=== PATIENT | male | born 1970 | race Caucasian/White ===

== ENCOUNTER 2022-01-25 03:24 | Inpatient (IN) | payer OTHER, SELFPAY ==
[2022-01-25] VITALS (12 sets, daily range): BP systolic 106–151; BP diastolic 60–88; PULSE 90–117; RESP 15–18; TEMP 36.4–37.8; O2SAT 92–98; BMI 38.0; BMI 39.1
--- NOTE | 2022-01-25 03:33 | CTR_ITS ---
PROCEDURE INFORMATION: Exam: CT Abdomen And Pelvis With Contrast Exam date and time: 01/25/2022 3:50 AM Age: 51 years old Clinical indication: Abdominal pain; Localized; Patient HX: Lower abd pain with diarrhea. TECHNIQUE: Imaging protocol: Computed tomography of the abdomen and pelvis with contrast. Radiation optimization: All CT scans at this facility use at least one of these dose optimization techniques: automated exposure control; mA and/or kV adjustment per patient size (includes targeted exams where dose is matched to clinical indication); or iterative reconstruction. Contrast material: OMNI 300; Contrast volume: 95 ml; Contrast route: INTRAVENOUS (IV); COMPARISON: No relevant prior studies available. RADIATION DOSE METRICS: Total DLP (mGy-cm): 2051. FINDINGS: Liver: Normal. No mass. Gallbladder and bile ducts: Normal. No calcified stones. No ductal dilation. Pancreas: Normal. No ductal dilation. Spleen: Normal. No splenomegaly. Adrenal glands: Normal. No mass. Kidneys and ureters: Normal. No hydronephrosis. Stomach and bowel: Moderate diverticulitis in the proximal sigmoid colon with focally contained air suggesting rupture of a diverticulum with no gross pneumoperitoneum or abscess. Appendix: No evidence of appendicitis. Intraperitoneal space: See Stomach and bowel finding. Vasculature: One or more calcified pelvic phleboliths. Lymph nodes: Unremarkable. No enlarged lymph nodes. Urinary bladder: Unremarkable as visualized. Reproductive: Unremarkable as visualized. Bones/joints: Unremarkable. No acute fracture. Soft tissues: Unremarkable. CT/CT abdomen pelvis w con* [id number] IMPRESSION: Moderate diverticulitis in the proximal sigmoid colon with focally contained air suggesting rupture of a diverticulum with no gross pneumoperitoneum or abscess.
--- NOTE | 2022-01-25 03:34 | W.ED.ABDPA2 ---
HPI - Abdominal Pain General: Chief Complaint: Abdominal Pain Stated Complaint: ABD PAIN Time Seen by Provider: 01/25/22 03:30 Source: patient and EMS Mode of arrival: EMS Limitations: no limitations History of Present Illness: 51-year-old male states he has been having right upper quadrant and right lower quadrant abdominal pain. He states the pain started at 10 PM last night's been very sharp in nature rates an 8 out of 10. Had some nausea vomiting denies any worsening improving factors. Denies any history of any abdominal issues in the past or abdominal surgeries recently. Denies fevers denies chest pain denies radiation of his pain. Denies dysuria Associated Symptoms: Reports nausea and vomiting; Denies chills, dysuria and fever(s) Review of Systems Const: Denies: fever(s), chills, body aches or change in appetite Eyes: Denies: blurry vision or eye discomfort ENMT: Denies: throat pain or dental pain Card: Denies: chest pain Resp: Denies: dyspnea GI: Reports: abdominal pain, nausea and vomiting : Denies: dysuria Musc: Denies: neck pain or back pain Skin/Breast: Denies: rash Neuro: Denies: headache(s) Psych: Denies: depression Reinier/Lymph: Denies: easy bruising All/Imm: Denies: urticaria PFSH ED PFSH: Medical History (Updated 01/25/22 @ 05:03 by Hector Quintero MD) No pertinent past medical history Social History (Updated 01/25/22 @ 03:34 by Hector Quintero MD) Smoking and tobacco status: never smoked Substance/Drug Use: never Physical Exam Const: COMMON NORMALS: no acute distress, patient oriented x3 and healthy appearing HENMT: COMMON NORMALS: normocephalic and atraumatic HEAD & SCALP: normocephalic and atraumatic Eye: COMMON NORMALS: Equal, round and reactive pupils present and EOMs intact bilaterally PUPIL: Yes Equal, round and reactive pupils present Neck/C-Spine: COMMON NORMALS: full ROM and supple Chest: COMMONS NORMALS: normal inspection of the chest and normal palpation of entire chest wall Resp: COMMON NORMALS: normal respiratory effort, No retractions, No use of accessory muscles and clear to auscultation bilaterally AUSCULTATION: clear to auscultation bilaterally Cardio: COMMON NORMALS: regular rate, regular rhythm and No murmurs present (Cardio) RATE: regular rate RHYTHM: regular rhythm GI: COMMON NORMALS: Normal to inspection, nondistended, normoactive bowel sounds present, Soft to palpation and no masses PALPATION: Yes Soft to palpation OTHER: ruq and rlq tenderness Extremity: COMMON NORMALS: normal to inspection and full ROM Neuro: COMMON NORMALS: patient oriented x3, moves all extremities and no focal motor deficits Psych: COMMON NORMALS: mental status grossly normal, Normal thought process present and cooperative THOUGHT PROCESS: Normal thought process present Skin: COMMON NORMALS: no rashes or lesions noted and no wounds GENERAL SKIN EXAM: no rashes or lesions noted Course Vital Signs: Vital signs: Vital Signs Temperature 97.5 F L 01/25/22 03:27 Pulse Rate 94 01/25/22 04:30 Respiratory Rate 16 01/25/22 04:30 Blood Pressure 151/82 01/25/22 04:30 Pulse Oximetry 96 01/25/22 04:30 MDM - Abdominal Pain Medical Decision Making HospitalPatient presents here with diverticulitis with elevated white count. Will admit here for IV antibiotics he has been stable while here. Pain is improved here after Dilaudid Lab Data : 01/25/22 03:46 01/25/22 03:46 Labs/Radiology: Radiology Impressions Abdomen/Pelvis CT 01/25/22 03:33 IMPRESSION: Moderate diverticulitis in the proximal sigmoid colon with focally contained air suggesting rupture of a diverticulum with no gross pneumoperitoneum or abscess. Laboratory Results WBC 14.8 10^3/uL (4.0-10.0) H 01/25/22 03:46 RBC 5.35 10^6/uL (4.1-5.3) H 01/25/22 03:46 Hgb 15.4 g/dL (11.7-16.6) 01/25/22 03:46 Hct 47.1 % (42.0-52.0) 01/25/22 03:46 MCV 88.0 fl (80-94) 01/25/22 03:46 MCH 28.8 pg (28.0-34.0) 01/25/22 03:46 MCHC 32.7 g/dL (30.0-36.0) 01/25/22 03:46 RDW 12.7 % (12.1-15.1) 01/25/22 03:46 Plt Count 225 10^3/cmm (130-400) 01/25/22 03:46 MPV 9.9 fL (7.4-10.4) 01/25/22 03:46 Neut % (Auto) 89.5 % 01/25/22 03:46 Lymph % (Auto) 4.3 % 01/25/22 03:46 Rogers % (Auto) 4.9 % 01/25/22 03:46 Eos % (Auto) 0.7 % 01/25/22 03:46 Baso % (Auto) 0.3 % 01/25/22 03:46 Neut # (Auto) 13.28 10^3/uL (1.8-7.7) H 01/25/22 03:46 Lymph # (Auto) 0.6 10^3/uL (0.8-4.8) L 01/25/22 03:46 Rogers # (Auto) 0.7 10^3/uL (0.2-0.9) 01/25/22 03:46 Eos # (Auto) 0.1 10^3/uL (0.0-0.8) 01/25/22 03:46 Baso # (Auto) 0.0 10^3/uL (0.0-0.1) 01/25/22 03:46 Nucleated RBC % (auto) 0 % 01/25/22 03:46 Nucleated RBCs # 0.0 /100WBC 01/25/22 03:46 Sodium 141 mmol/L (136-145) 01/25/22 03:46 Potassium 4.1 mmol/L (3.5-5.1) 01/25/22 03:46 Chloride 105 mmol/L (98-107) 01/25/22 03:46 Carbon Dioxide 25 mmol/L (22-29) 01/25/22 03:46 Anion Gap 15.1 (5-19) 01/25/22 03:46 BUN 19 mg/dL (6-20) 01/25/22 03:46 Creatinine 0.9 mg/dL (0.7-1.2) 01/25/22 03:46 GFR Calculation 89.0 mL/min (90-130) L 01/25/22 03:46 Glucose 219 mg/dL (65-115) H 01/25/22 03:46 Calculated Osmolality 301 mOsm/kg (285-295) H 01/25/22 03:46 Calcium 9.8 mg/dL (8.5-10.5) 01/25/22 03:46 Total Bilirubin 0.3 mg/dL (0.15-1.2) 01/25/22 03:46 AST 25 U/L (0-40) 01/25/22 03:46 ALT 46 U/L (0-41) H 01/25/22 03:46 Alkaline Phosphatase 42 IU/L (40-130) 01/25/22 03:46 Total Protein 7.6 g/dL (6.6-8.7) 01/25/22 03:46 Albumin 4.6 g/dL (3.5-5.2) 01/25/22 03:46 Globulin 3.0 g/dL (1.3-4.6) 01/25/22 03:46 Lipase 44 U/L (13-60) 01/25/22 03:46 Urine Color Yellow (Yellow) 01/25/22 04:40 Urine Appearance Clear (CLEAR) 01/25/22 04:40 Urine pH 5 (5-7) 01/25/22 04:40 Ur Specific Faxon 1.015 (1.005-1.030) 01/25/22 04:40 Urine Protein Neg (Negative) 01/25/22 04:40 Urine Glucose (UA) 2+ (Normal) H 01/25/22 04:40 Urine Ketones Negative (Negative) 01/25/22 04:40 Urine Blood Neg (Negative) 01/25/22 04:40 Urine Nitrate Negative (Negative) 01/25/22 04:40 Urine Bilirubin Neg (Negative) 01/25/22 04:40 Urine Urobilinogen Norm mg/dL (Negative) 01/25/22 04:40 Ur Leukocyte Esterase Negative (Negative) 01/25/22 04:40 Discharge Plan Discharge Patient Disposition: Admitted As Inpatient Clinical Impression: Diverticulitis Coding Level of Care Code 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
[2022-01-25] MEDS: HYDROmorphone 1 mg/mL INJ 1 mL IVP (03:44)
[2022-01-25] MEDS: ondansetron 2 mg/ML SDV 2 mL 4 MG IVP (03:45)
[2022-01-25] MEDS: sodium chloride 0.9% 1,000 ML 999 ML IV (03:45)
[2022-01-25] MEDS: iohexol 300 mg/mL 100 mL Btl IV (03:48)
[2022-01-25 03:54] LABS: Basophils % 0.3 %; Eosinophils # 0.1 10^3/uL (0.0-0.8); Eosinophils % 0.7 %; Hematocrit 47.1 % (42.0-52.0); Hemoglobin 15.4 g/dL (11.7-16.6); Lymphocytes # 0.6 10^3/uL (0.8-4.8); Lymphocytes % 4.3 %; Mean Corpuscular HGB Conc 32.7 g/dL (30.0-36.0); Mean Corpuscular Hemoglobin 28.8 pg (28.0-34.0); Mean Platelet Volume 9.9 fL (7.4-10.4); Monocytes # 0.7 10^3/uL (0.2-0.9); Monocytes % 4.9 %; Neutrophils # 13.28 10^3/uL (1.8-7.7); Neutrophils % 89.5 %; Nucleated Red Blood Cells % 0 %; Platelet Count 225 10^3/cmm (130-400); Red Blood Count 5.35 10^6/uL (4.1-5.3); Red Cell Distribution Width 12.7 % (12.1-15.1); White Blood Count 14.8 10^3/uL (4.0-10.0)
[2022-01-25 04:16] LABS: Alanine Aminotransferase 46 U/L (0-41); Albumin Level 4.6 g/dL (3.5-5.2); Alkaline Phosphatase 42 IU/L (40-130); Aspartate Amino Transferase 25 U/L (0-40); Blood Urea Nitrogen 19 mg/dL (6-20); Calcium 9.8 mg/dL (8.5-10.5); Carbon Dioxide 25 mmol/L (22-29); Chloride 105 mmol/L (98-107); Glucose 219 mg/dL (65-115); Lipase 44 U/L (13-60); Osmolality Calculated 301 mOsm/kg (285-295); Sodium 141 mmol/L (136-145); Total Bilirubin 0.3 mg/dL (0.15-1.2); Total Protein 7.6 g/dL (6.6-8.7)
[2022-01-25 04:17] LABS: Anion Gap 15.1 (5-19); Potassium 4.1 mmol/L (3.5-5.1)
[2022-01-25 04:59] LABS: Add Urine Microscopic? NO; Charge for UA Resulting for Rev
[2022-01-25 05:16] LABS: Bilirubin Urine Neg (Negative); Blood Urine Neg (Negative); Glucose Urine UA 2+ (Normal); Ketones Urine Negative (Negative); Leukocyte Esterase Urine Negative (Negative); Nitrate Urine Negative (Negative); Protein Urine Neg (Negative); Specific Gravity, Urine 1.015 (1.005-1.030); Urine Appearance Clear (CLEAR); Urine Color Yellow (Yellow); Urobilinogen Urine Norm (Negative); pH Urine 5 (5-7)
[2022-01-25] MEDS: metroNIDAZOLE IV 500 MG/100 ML PREMIX 100 MG IV ×3 (05:18→21:07)
[2022-01-25] MEDS: ciprofloxacin 400 MG/200 ML PREMIX 200 MG IV ×2 (05:19→17:30)
--- NOTE | 2022-01-25 06:06 | P.HP_ITS ---
Providers/Chief Complaint Admitting Physician: James Hanna Chief Complaint: ABD PAIN History of Present Illness Pleasant 51-year-old gentleman with history of hernia repair in infancy, but otherwise no significant past medical history presented to ER for evaluation due to abdominal pain, associated with diarrhea, nausea no vomiting, 8 out of 10 severity, across lower abdomen radiating to the left lower quadrant. He was having some chills, no fever. Lives at home with his and children, but nobody else was ill. CT abdomen pelvis in ER reveals moderate diverticulitis and proximal sigmoid colon with focal contained air suggesting rupture of a diverticulum with no gross pneumoperitoneum or abscess. Noted leukocytosis 14.8. Heart rate 90-100. He received 1000 sodium chloride bolus. Pain and nausea medication. Is started on Cipro and Flagyl. Lactic acid, blood cultures are requested. Surgery is consulted. Review of Systems Const: Reports: chills; Denies: fever(s), body aches or malaise Eyes: Denies: change in vision, eye discomfort or eye redness ENMT: Denies: throat pain, oral sores or ear or mastoid pain Card: Denies: chest pain, edema, pre-syncope or dyspnea on exertion Resp: Denies: dyspnea, productive cough, change in phlegm color or hemoptysis GI: Reports: abdominal pain, nausea and diarrhea; Denies: vomiting, constipation, hematochezia or melena : Denies: flank pain, difficulty urinating, urinary frequency or hematuria Musc: Denies: back pain, joint swelling or joint redness Skin/Breast: Denies: rash or new lesions Neuro: Denies: headache(s), numbness in extremities, weakness in extremities, dizziness, confusion or seizure-like activity Endo: Denies: polyuria or polydipsia Reinier/Lymph: Denies: easy bleeding or tender lymph nodes All/Imm: Denies: urticaria or tongue swelling Medications/Allergies Allergies Allergy/AdvReac Type Severity Reaction Status Date / Time No Known Allergies Allergy Verified 01/25/22 03:53 PFSH Acute PFSH: Medical History (Updated 01/25/22 @ 06:13 by James Hanna MD) No pertinent past medical history Surgical History H/O hernia repair Infancy Family History Other No significant family history Social History (Updated 01/25/22 @ 06:09 by James Hanna MD) Smoking and tobacco status: never smoked Substance/Drug Use: never Lives independently: Yes Marital status: Vitals/I&O/Wt Last Vital Signs Temp 97.5 F L 01/25/22 05:31 Pulse 90 01/25/22 05:31 Resp 16 01/25/22 05:31 BP 136/73 01/25/22 05:31 Pulse Ox 94 01/25/22 05:31 Weight last 48 hrs Weight 127.006 kg Physical Exam Const: COMMON NORMALS: alert GENERAL APPEARANCE: cooperative ORIENTATION/CONSCIOUSNESS: Yes awake HENMT: COMMON NORMALS: normocephalic, EAC's normal, Normal external nose present and moist oral mucous membranes HEAD & SCALP: normocephalic NOSE: Normal external nose present EXTERNAL AUDITORY CANAL: EAC's normal Neck/C-Spine: COMMON NORMALS: no meningeal signs Chest: CHEST: Yes Symmetrical chest wall rise Resp: COMMON NORMALS: clear to auscultation bilaterally AUSCULTATION: clear to auscultation bilaterally Cardio: COMMON NORMALS: regular rate, regular rhythm and No murmurs present (Cardio) RATE: regular rate RHYTHM: regular rhythm GI: COMMON NORMALS: Soft to palpation PALPATION: Yes Soft to palpation and Yes Tenderness to palpation present (GI) Details: LLQ Extremity: COMMON NORMALS: no pedal edema Neuro: COMMON NORMALS: moves all extremities SENSORIUM/ORIENTATION: Yes alert MENINGEAL SIGNS: Yes no meningeal signs Psych: COMMON NORMALS: mental status grossly normal Skin: COMMON NORMALS: no wounds RASHES: no rashes Data : 01/25/22 03:46 01/25/22 03:46 A&P Assessment and plan (1) Diverticulitis: Continue Cipro, Flagyl. Bowel rest, sips and ice chips. IV fluids. After recovers would benefit from follow-up colonoscopy. Reports also having multiple episodes of diarrhea, will request stool studies. Status: Acute (2) Perforated diverticulum of large intestine: No pneumoperitoneum. No indication for urgent surgical intervention. Status: Acute (3) Sepsis: Sepsis due to diverticulitis. Collect lactic acid, blood cultures. He is started on Cipro and Flagyl, will continue. Status: Acute Plan History of hernia repair in infancy. Attestations Medical Necessity Statement*: Admission of over 2 midnights is anticipated for assessment of management of sepsis due to diverticulitis with microperforation. Coding Level of Care Code Acute Nurse Assistant for [facility] Fwd Diagnoses Diverticulitis K57.92 Perforated diverticulum of large intestine K57.20 Sepsis A41.9
[2022-01-25] MEDS: heparin 5,000 unit/mL INJ 1 mL 5000 UNIT SUBCUT (06:44)
[2022-01-25] MEDS: lactated ringers 1,000 ML 100 ML IV ×2 (06:44→17:30)
[2022-01-25 08:01] LABS: Lactate (Lactic Acid level) 2.4 mmol/L (0.5-2.2)
--- NOTE | 2022-01-25 08:45 | PM.PN ---
Subjective Subjective: Patient sitting comfortably low-grade fever Leukocytosis Tachycardia Laying comfortably No active complaints No active emesis No endorgan damage Vitals/I&O/Wt Last Vital Signs Temp 100.1 F H 01/25/22 08:15 Pulse 112 H 01/25/22 08:15 Resp 15 01/25/22 08:15 BP 117/63 01/25/22 08:15 Pulse Ox 92 01/25/22 08:15 Weight last 48 hrs Weight 130.907 kg Weight 127.006 kg Physical Exam Narrative: Patient was laying comfortably pain mostly in his hypogastric region Laying comfortably in his bed Saturating well on room air Low-grade fever Euvolemic Abdomen is soft no signs of peritonitis, mild tenderness on deep palpation in hypogastric region EOMI, PERRLA S1, S2 Patient is euvolemic Data : 01/25/22 03:46 01/25/22 03:46 Micro: Microbiology 01/25/22 07:24 Blood Culture - Preliminary Blood SPECIMEN COLLECTED 01/25/22 07:24 Blood Culture - Preliminary Blood SPECIMEN COLLECTED A&P Assessment and plan (1) Perforated diverticulum of large intestine: Status: Acute (2) Diverticulitis: Status: Acute Plan Sepsis due to diverticulitis Patient has low-grade fever, tachycardia, lactic acid 2.4 Blood cultures obtained, continue IV antibiotics Patient is on clear liquids No active signs of peritonitis Monitor closely for now Patient will need outpatient colonoscopy once stable he did not have colonoscopy at age 50 He is denying constipation No family history of GI cancers Advance diet to clear liquid DVT prophylaxis SCDs, avoid heparin in case he would require any aggressive intervention Full code Attestations Medical Necessity Statement*: Continue medical management Time Spent in Patient Care: 20min Coding Level of Care Code Acute Lozenge Dough Mixer for [facility] Fwd Diagnoses Perforated diverticulum of large intestine K57.20 Diverticulitis K57.92
--- NOTE | 2022-01-25 14:57 | PM.CONSULT ---
Providers/Reason For Consult Consulting Physician/Specialty*: General Surgery Dr. Garrett Reason for Consult*: Perforated diverticulitis Requesting Physician: Dr. Quintero Attending Physician: Kvng Schwarz MD History of Present Illness History of Present Illness Eb Dias is a 51 year old male who is pretty healthy but presented to the ER with abdominal pain which is generalized and nausea since yesterday. He denies any vomiting, constipation or diarrhea. No hematemesis hematochezia or melena. The pain was initially generalized but now more localized to the lower abdomen, does not radiate, worse with physical activity. No prior colonoscopy. No family history of significant diverticular disease or colon cancer. He was noted to have a WBC of 14.[address] scan showing perforated sigmoid diverticulitis Review of Systems General: Reports: 10 or more systems reviewed and unremarkable except in HPI and below Medications/Allergies Home Medications Medication Instructions Recorded Confirmed Last Taken Type No Known Home Medications 01/25/22 01/25/22 Unknown History Allergies Allergy/AdvReac Type Severity Reaction Status Date / Time No Known Allergies Allergy Verified 01/25/22 03:53 Current Medications Generic Name Dose Route Start Last Admin Trade Name Freq PRN Reason Stop Dose Admin Heparin Sodium (Porcine) 5,000 unit 01/25/22 06:30 01/25/22 06:44 Heparin 5,000 Unit/Ml Inj 1 Ml SUBCUT 5,000 unit Q8H ARIK Administration Lactated Ringer's 1,000 mls @ 100 mls/hr 01/25/22 06:30 01/25/22 06:44 Lactated Ringers IV 100 mls/hr .Q10H ARIK Administration Metronidazole 500 mg in 100 mls @ 100 mls/hr 01/25/22 13:00 01/25/22 14:13 Flagyl Iv IV 100 mls/hr Q8H ARIK Administration Protocol PFSH Acute PFSH: Medical History No pertinent past medical history Surgical History H/O hernia repair Infancy Family History Other No significant family history Social History Smoking and tobacco status: never smoked Substance/Drug Use: never Lives independently: Yes Marital status: Vitals/I&O/Wt Last Vital Signs Temp 98.2 F 01/25/22 11:29 Pulse 116 H 01/25/22 11:29 Resp 18 01/25/22 11:29 BP 106/60 01/25/22 11:29 Pulse Ox 92 01/25/22 11:29 01/24/22 01/25/22 01/25/22 22:59 06:59 14:59 Intake Total 1300 / 1300 Balance 1300 / 1300 Weight last 48 hrs Weight 288 lb 9.6 oz Weight 280 lb Physical Exam Narrative: HEENT: Normocephalic Eye: Sclera /conjunctiva normal Abdomen: Soft to palpation, tender lower abdomen, no guarding or rigidity Neurological: Oriented to place person and time Skin: Intact, no lesions appreciated on gross exam Data : 01/27/22 05:35 01/27/22 05:35 Micro: Microbiology 01/25/22 07:24 Blood Culture - Preliminary Blood SPECIMEN COLLECTED 01/25/22 07:24 Blood Culture - Preliminary Blood SPECIMEN COLLECTED A&P Assessment and plan (1) Perforated diverticulum of large intestine: 51-year-old male with perforated sigmoid diverticulitis who is currently hemodynamically stable. Patient has low-grade fevers and his WBC is 14 on presentation IV Cipro and Flagyl Heparin for DVT prophylaxis Continue IV fluids Repeat CBC BMP tomorrow Discussed with the patient that while he is hemodynamically stable without evidence of peritonitis, we will treat him conservatively with IV antibiotics at this point. If he were to become hemodynamically unstable, develop peritonitis then we might have to repeat the CT scan and or proceed with surgery. The details of the potential surgery was discussed with the patient. Status: Acute Consult Attestations Medical Necessity Statement: As per attending physician Coding Level of Care Code Acute Supervisor [employer] for jaswinder Christensen Diagnoses Perforated diverticulum of large intestine K57.20
[2022-01-25 17:03] LABS: Lactate (Lactic Acid level) 1.5 mmol/L (0.5-2.2)
[2022-01-25] MEDS: morphine 4 mg/mL SDV 1 mL 2 MG IVP (18:59)
[2022-01-26] VITALS (10 sets, daily range): BP systolic 127–146; BP diastolic 66–79; PULSE 85–98; RESP 17–20; TEMP 36.6–37.6; O2SAT 91–96
[2022-01-26] MEDS: morphine 4 mg/mL SDV 1 mL 2 MG IVP ×3 (00:57→23:42)
[2022-01-26] MEDS: metroNIDAZOLE IV 500 MG/100 ML PREMIX 100 MG IV ×3 (05:04→20:32)
[2022-01-26] MEDS: lactated ringers 1,000 ML 100 ML IV ×2 (05:04→15:04)
[2022-01-26 05:34] LABS: Basophils % 0.2 %; Hematocrit 40.1 % (42.0-52.0); Hemoglobin 12.8 g/dL (11.7-16.6); Lymphocytes # 1.1 10^3/uL (0.8-4.8); Lymphocytes % 5.8 %; Mean Corpuscular HGB Conc 31.9 g/dL (30.0-36.0); Mean Corpuscular Hemoglobin 29.3 pg (28.0-34.0); Mean Corpuscular Volume 91.8 fl (80-94); Mean Platelet Volume 9.5 fL (7.4-10.4); Monocytes # 1.1 10^3/uL (0.2-0.9); Neutrophils # 16.08 10^3/uL (1.8-7.7); Neutrophils % 87.4 %; Nucleated Red Blood Cells % 0 %; Platelet Count 179 10^3/cmm (130-400); Red Blood Count 4.37 10^6/uL (4.1-5.3); Red Cell Distribution Width 13.2 % (12.1-15.1); White Blood Count 18.4 10^3/uL (4.0-10.0)
[2022-01-26] MEDS: ciprofloxacin 400 MG/200 ML PREMIX 200 MG IV ×2 (06:03→17:22)
[2022-01-26 06:04] LABS: Anion Gap 13.6 (5-19); Blood Urea Nitrogen 15 mg/dL (6-20); Calcium 8.8 mg/dL (8.5-10.5); Carbon Dioxide 22 mmol/L (22-29); Chloride 104 mmol/L (98-107); Glomerular Filtration Rate 101.9 mL/min (90-130); Glucose 133 mg/dL (65-115); Osmolality Calculated 285 mOsm/kg (285-295); Potassium 3.6 mmol/L (3.5-5.1); Sodium 136 mmol/L (136-145)
--- NOTE | 2022-01-26 09:48 | XR_ITS ---
WS: [id number] Exam: XR KUB portable [id number] Date/Time of Exam: 01/26/2022 9:54 AM Reason For Exam: micro perf diverticluilitis Multiple dilated small bowel loops in the central abdomen suggesting small bowel obstruction. No obvi ous pneumoperitoneum. Organ margins are obscured. XR/XR KUB portable [id number] IMPRESSION: 1. Findings suggest small bowel obstruction.
--- NOTE | 2022-01-26 11:05 | PC.CHAP ---
Pastoral Care Encounter/Spiritual Assessment Type of Contact [] Declined right of way cutter visit [] Patient/Family/Request visit [] Outpatient visit [] Follow-up visit [] Physician referral [] Code/Alert [x] Routine visit [] Staff referral [] Actively dying [] Patient sleeping [] Family support [] [] Out of room [] Palliative care [] [x] Receiving care in room [] Pre-surgical visit [] Trauma [x] Long length of stay [] ICU visit [] Other: Relational/Emotional Strength [x] Patient feels connected with others/family/visitors/staff [] Distress [] Loneliness/isolation [] Abandonment Spirituality of Patient [x] Person of Janett [] Attends Voodoo of their Janett [x] Believes in Prayer [] Reads Bible or Hoahaoism materials [] There are Spiritual issues to be addressed Tunnel Man Interventions [x] Prayer [x] Active listening [x] Non-anxious presence [x] Spiritual/emotional support [] Crisis/trauma care [x] Spiritual counseling [] Bereavement support [] Provided bereavement packet [] Provided Bible/devotional materials [] Provided toy/stuffed animal, coloring book to patient or family member [] Provided Communion [] Anointing/[place] [] Salvation [x] Completed spiritual assessment [] Other: Impact on Illness or Injury [] Angry [] Fearful [x] Anxious [] Often cries [] Exhaustion [] Unable to work [] Unable to attend sikh [] Unable to walk/stand [] Unable to read [] Unable to drive [] Unable to eat/drink [] Unable to sleep [] Unable to be with family [] Patient intubated [] Other: Summary diver articliss will take time for any kin of recover will be able to go home has agood attitude Time spent with patient
--- NOTE | 2022-01-26 11:11 | PM.PN ---
Subjective Subjective: Jumping white count noted Afebrile Cultures negative Requested KUB which showed ileus versus SBO He has been tolerating his diet Passing flatus, endorsing that his pain is less in intensity as compared to yesterday Currently on clear liquid diet Vitals/I&O/Wt Last Vital Signs Temp 98.6 F 01/26/22 08:00 Pulse 87 01/26/22 08:00 Resp 17 01/26/22 08:00 BP 146/75 01/26/22 08:00 Pulse Ox 92 01/26/22 08:00 01/25/22 01/26/22 01/26/22 22:59 06:59 14:59 Intake Total 1520 / 2820 1100 / 3920 200 / 200 Output Total 340 / 340 180 / 520 Balance 1180 / 2480 920 / 3400 200 / 200 Weight last 48 hrs Weight 130.907 kg Weight 127.006 kg Physical Exam Narrative: Patient is comfortably in his bed at the bedside Saturating well on room air Abdomen is distended, soft, no sign of peritonitis, mild tenderness on deep palpation in left lower quadrant and hypogastric region Bowel sounds sluggish to absent No active signs of peritonitis No rebound tenderness guarding or rigidity No signs of edema Very pleasant and cooperative Saturating well on room air Data : 01/26/22 04:39 01/26/22 04:39 Micro: Microbiology 01/25/22 07:24 Blood Culture - Preliminary Blood NEGATIVE TO DATE 01/25/22 07:24 Blood Culture - Preliminary Blood NEGATIVE TO DATE A&P Assessment and plan (1) Sepsis: Status: Acute (2) Perforated diverticulum of large intestine: Status: Acute (3) Diverticulitis: Status: Acute (4) SBO (small bowel obstruction): Status: Acute Plan Sepsis related to diverticulitis SBO today, leukocytosis worsening We will make him n.p.o., will transfuse with Dr. Garrett if he would recommend an NG tube to suction however patient clinically is better, not experiencing emesis, afebrile, cultures negative to date, no electrolyte imbalance Lactate 1.5 Okay for 1 dose of milk of magnesia He was tolerating clear liquid diet without any difficulties KUB obtained today, no signs of pneumoperitoneum, Abdomen is nontender no active signs of peritonitis Patient is full code Change diet to n.p.o. except medications, will follow up with general surgery Patient is full code N.p.o. for now Attestations Medical Necessity Statement*: Continue medical management Coding Level of Care Code Acute Circular Knife Machine Cutter for [facility] Fwd Diagnoses Sepsis A41.9 Perforated diverticulum of large intestine K57.20 Diverticulitis K57.92 SBO (small bowel obstruction) K56.609
[2022-01-26 12:16] LABS: Procalcitonin 0.57 ng/mL (0-0.5)
[2022-01-26 12:27] LABS: C Reactive Protein 239.2 mg/L (0.0-4.9)
--- NOTE | 2022-01-26 12:42 | P.PN_ITS ---
Subjective Subjective: Patient states that his abdominal pain is better, no nausea or vomiting, tolerating clears, no flatus or BM Medications: Reviewed: Yes Vitals/I&O/Wt Last Vital Signs Temp 99.7 F H 01/26/22 12:00 Pulse 91 01/26/22 12:00 Resp 18 01/26/22 12:00 BP 137/75 01/26/22 12:00 Pulse Ox 91 01/26/22 12:00 01/25/22 01/26/22 01/26/22 22:59 06:59 14:59 Intake Total 1520 / 3920 1100 / 3920 320 / 320 Output Total 340 / 520 180 / 520 Balance 1180 / 3400 920 / 3400 320 / 320 Weight last 48 hrs Weight 288 lb 9.6 oz Weight 280 lb Physical Exam Narrative: Abdomen: Soft, tender, voluntary guarding present, no rigidity Data : 01/26/22 04:39 01/26/22 04:39 Micro: Microbiology 01/25/22 07:24 Blood Culture - Preliminary Blood NEGATIVE TO DATE 01/25/22 07:24 Blood Culture - Preliminary Blood NEGATIVE TO DATE A&P Assessment and plan (1) Perforated diverticulum of large intestine: 51-year-old male with perforated sigmoid diverticulitis who is currently hemodynamically stable. Patient had a T-max of 101 yesterday morning but his white count is up to 18.4 today. No flatus or BM Continue IV Cipro and Flagyl Heparin for DVT prophylaxis Continue IV fluids Repeat CBC BMP tomorrow Start Colace 100 mg p.o. twice daily patient most likely has ileus with functional obstruction from inflammation in the sigmoid colon Discussed with the patient that while he is hemodynamically stable without evidence of peritonitis his WBC is trending up which raises the possibility of him developing a potential abscess. At this point we will continue with observation but if his WBC continues to trend up and if he were to become more febrile then we will need to repeat the CT scan of the abdomen and pelvis Status: Acute Attestations Medical Necessity Statement*: as per primary Coding Level of Care Code Acute Canoe Inspector Final for [facility] Diagnoses Perforated diverticulum of large intestine K57.20
[2022-01-26] MEDS: magnesium hydroxide 30 mL UDC 15 ML PO (15:43)
[2022-01-26] MEDS: docusate sodium 100 mg Capsule PO (17:22)
[2022-01-26] MEDS: acetaminophen 325 mg Tablet 650 MG PO (20:32)
[2022-01-27] VITALS (9 sets, daily range): BP systolic 122–164; BP diastolic 74–93; PULSE 82–95; RESP 16–20; TEMP 36.6–37.4; O2SAT 91–95
[2022-01-27] MEDS: lactated ringers 1,000 ML 100 ML IV (01:10)
[2022-01-27] MEDS: metroNIDAZOLE IV 500 MG/100 ML PREMIX 100 MG IV ×3 (04:18→20:26)
[2022-01-27] MEDS: morphine 4 mg/mL SDV 1 mL 2 MG IVP (04:21)
[2022-01-27] MEDS: ciprofloxacin 400 MG/200 ML PREMIX 200 MG IV ×2 (05:31→17:26)
[2022-01-27 05:58] LABS: Basophils % 0.1 %; Eosinophils % 0.1 %; Hematocrit 41.1 % (42.0-52.0); Hemoglobin 13.6 g/dL (11.7-16.6); Lymphocytes # 0.6 10^3/uL (0.8-4.8); Lymphocytes % 3.6 %; Mean Corpuscular HGB Conc 33.1 g/dL (30.0-36.0); Mean Corpuscular Hemoglobin 29.2 pg (28.0-34.0); Mean Corpuscular Volume 88.2 fl (80-94); Mean Platelet Volume 9.1 fL (7.4-10.4); Monocytes # 0.9 10^3/uL (0.2-0.9); Neutrophils % 90.5 %; Nucleated Red Blood Cells % 0 %; Platelet Count 205 10^3/cmm (130-400); Red Blood Count 4.66 10^6/uL (4.1-5.3); Red Cell Distribution Width 12.9 % (12.1-15.1); White Blood Count 17.6 10^3/uL (4.0-10.0)
[2022-01-27 06:18] LABS: Anion Gap 15.3 (5-19); Blood Urea Nitrogen 13 mg/dL (6-20); Calcium 8.8 mg/dL (8.5-10.5); Carbon Dioxide 25 mmol/L (22-29); Chloride 100 mmol/L (98-107); Glomerular Filtration Rate 101.9 mL/min (90-130); Glucose 156 mg/dL (65-115); Osmolality Calculated 287 mOsm/kg (285-295); Potassium 3.3 mmol/L (3.5-5.1); Sodium 137 mmol/L (136-145)
[2022-01-27 06:25] LABS: Lactate (Lactic Acid level) 1.1 mmol/L (0.5-2.2)
[2022-01-27] MEDS: potassium chloride ER 20 mEq Tablet 40 MEQ PO (07:59)
[2022-01-27] MEDS: docusate sodium 100 mg Capsule PO (08:00)
--- NOTE | 2022-01-27 12:00 | P.PN_ITS ---
Subjective Subjective: Patient is afebrile 1 bowel movement yesterday Tolerating clear liquid diet No worsening abdominal pain Leukocytosis trending down Potassium repleted IV fluids discontinued Hypertension related to IV fluids Vitals/I&O/Wt Last Vital Signs Temp 98.8 F 01/27/22 11:28 Pulse 95 01/27/22 11:28 Resp 18 01/27/22 11:28 BP 164/93 01/27/22 11:28 Pulse Ox 95 01/27/22 11:28 01/26/22 01/27/22 01/27/22 22:59 06:59 14:59 Intake Total 1400 / 1720 1540 / 3260 120 / 120 Output Total 420 / 420 Balance 1400 / 1720 1120 / 2840 120 / 120 Physical Exam Narrative: Patient is laying comfortably in his bed Abdomen is slightly tender on deep palpation however no active signs of guarding rigidity or peritonitis Bowel sound present No signs of edema Nonfocal neuro exam Saturating well on room air S1, S2 Patient is pleasant cooperative during my evaluation Data : 01/27/22 05:35 01/27/22 05:35 Micro: Microbiology 01/27/22 04:25 Enteric Pathogens (PCR) - Final Stool Routine Collection C.difficile Toxin B Gene (PCR) - Final 01/25/22 07:24 Blood Culture - Preliminary Blood NEGATIVE TO DATE 01/25/22 07:24 Blood Culture - Preliminary Blood NEGATIVE TO DATE A&P Assessment and plan (1) SBO (small bowel obstruction): Status: Acute (2) Sepsis: Status: Acute (3) Perforated diverticulum of large intestine: Status: Acute (4) Diverticulitis: Status: Acute Plan Sepsis related to diverticulitis: Improving Monitor for signs of intra-abdominal abscess Leukocytosis trending down Afebrile Cultures negative to date Clinically patient is improving SBO: Improved he is tolerating his diet, 1 bowel movement yesterday This most likely is related to ileus due to active inflammation Advance diet after general surgery evaluation today Continue IV antibiotics Discontinue IV fluids secondary to hypertension, add amlodipine, Opioids Avoid anticoagulating agent at this point in case he would require any intervention, We will discharge him once his leukocytosis shows a downtrend Attestations Medical Necessity Statement*: Patient may be able to go home in next 30 hours Time Spent in Patient Care: 20mins Coding Level of Care 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
[2022-01-27] MEDS: amlodipine 10 mg Tablet PO (12:28)
--- NOTE | 2022-01-27 12:51 | PM.PN ---
Subjective Subjective: Patient has been doing well feels a lot better today, had 3 bowel movements, no nausea vomiting. He has been afebrile for the last 24 hours Medications: Reviewed: Yes Vitals/I&O/Wt Last Vital Signs Temp 98.5 F 01/27/22 12:00 Pulse 91 01/27/22 12:00 Resp 16 01/27/22 12:00 BP 143/83 01/27/22 12:00 Pulse Ox 92 01/27/22 12:00 01/26/22 01/27/22 01/27/22 22:59 06:59 14:59 Intake Total 1400 / 3260 1540 / 3260 120 / 120 Output Total 420 / 420 Balance 1400 / 2840 1120 / 2840 120 / 120 Physical Exam Narrative: Abdomen: Soft, nondistended, minimally tender in the left lower quadrant Data : 01/27/22 05:35 01/27/22 05:35 Micro: Microbiology 01/27/22 04:25 Enteric Pathogens (PCR) - Final Stool Routine Collection C.difficile Toxin B Gene (PCR) - Final A&P Assessment and plan (1) Perforated diverticulum of large intestine: 51-year-old male with perforated sigmoid diverticulitis who is currently hemodynamically stable. Patient has been afebrile and white count is down to 17.6 Continue IV Cipro and Flagyl Heparin for DVT prophylaxis DC IV fluids Repeat CBC BMP tomorrow Colace 100 mg p.o. twice daily to be continued Recheck labs tomorrow, if patient continues to be afebrile and WBC is trending down he could potentially go home on oral antibiotics for 7 days. 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
[2022-01-28 04:00] VITALS: BP 131/74; PULSE 84; RESP 18; TEMP 36.4; O2SAT 95
[2022-01-28] MEDS: metroNIDAZOLE IV 500 MG/100 ML PREMIX 100 MG IV (04:08)
[2022-01-28 05:03] LABS: Basophils % 0.2 %; Eosinophils # 0.3 10^3/uL (0.0-0.8); Eosinophils % 2.1 %; Hematocrit 40.9 % (42.0-52.0); Hemoglobin 13.5 g/dL (11.7-16.6); Lymphocytes # 1.2 10^3/uL (0.8-4.8); Lymphocytes % 8.9 %; Mean Corpuscular Hemoglobin 29.2 pg (28.0-34.0); Mean Corpuscular Volume 88.5 fl (80-94); Mean Platelet Volume 9.4 fL (7.4-10.4); Monocytes # 0.8 10^3/uL (0.2-0.9); Monocytes % 6.4 %; Neutrophils # 10.68 10^3/uL (1.8-7.7); Neutrophils % 81.7 %; Nucleated Red Blood Cells % 0 %; Platelet Count 222 10^3/cmm (130-400); Red Blood Count 4.62 10^6/uL (4.1-5.3); Red Cell Distribution Width 13.1 % (12.1-15.1); White Blood Count 13.1 10^3/uL (4.0-10.0)
[2022-01-28 05:25] LABS: Anion Gap 13.1 (5-19); Blood Urea Nitrogen 12 mg/dL (6-20); Calcium 8.8 mg/dL (8.5-10.5); Carbon Dioxide 24 mmol/L (22-29); Chloride 101 mmol/L (98-107); Glomerular Filtration Rate 101.9 mL/min (90-130); Glucose 103 mg/dL (65-115); Osmolality Calculated 280 mOsm/kg (285-295); Potassium 3.1 mmol/L (3.5-5.1); Sodium 135 mmol/L (136-145)
[2022-01-28] MEDS: ciprofloxacin 400 MG/200 ML PREMIX 200 MG IV (05:34)
[2022-01-28 07:40] VITALS: BP 123/73; PULSE 82; RESP 17; TEMP 36.8; O2SAT 95
[2022-01-28] MEDS: pantoprazole DR 40 mg Tablet PO (08:06)
[2022-01-28] MEDS: amlodipine 10 mg Tablet PO (08:07)
--- NOTE | 2022-01-28 10:58 | PM.PN ---
Subjective Subjective: Patient denies any abdominal pain, nausea, vomiting, had bowel movements Medications: Reviewed: Yes Vitals/I&O/Wt Last Vital Signs Temp 98.3 F 01/28/22 07:40 Pulse 82 01/28/22 07:40 Resp 17 01/28/22 07:40 BP 123/73 01/28/22 07:40 Pulse Ox 95 01/28/22 07:40 01/27/22 01/28/22 01/28/22 22:59 06:59 14:59 Intake Total 660 / 2300 360 / 2300 720 / 720 Balance 660 / 2300 360 / 2300 720 / 720 Physical Exam Narrative: Abdomen: Soft, nontender, nondistended Data : 01/28/22 04:16 01/28/22 04:16 Micro: Microbiology 01/27/22 04:25 Enteric Pathogens (PCR) - Final Stool Routine Collection C.difficile Toxin B Gene (PCR) - Final A&P Assessment and plan (1) Sigmoid diverticulitis: 51-year-old male with perforated sigmoid diverticulitis managed conservatively. 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
--- NOTE | 2022-01-28 11:03 | P.DS_ITS ---
Discharge Providers Date of Admission: 01/25/22 06:13 Date of Discharge: January 28, 2022 Attending Provider at Admission: James Hanna Attending Provider at Discharge: Kvng Schwarz MD Diagnoses at Discharge Discharge Diagnosis (1) Sigmoid diverticulitis: Status: Acute Reason for Visit Reason for Visit: ABD PAIN Hospital Course Hospital Course Admitting note of Dr. Hanna Norbert 51-year-old gentleman with history of hernia repair in infancy, but otherwise no significant past medical history presented to ER for evaluation due to abdominal pain, associated with diarrhea, nausea no vomiting, 8 out of 10 severity, across lower abdomen radiating to the left lower quadrant.? He was having some chills, no fever.? Lives at home with his and children, but nobody else was ill.? CT abdomen pelvis in ER reveals moderate diverticulitis and proximal sigmoid colon with focal contained air suggesting rupture of a diverticulum with no gross pneumoperitoneum or abscess.? Noted leukocytosis 14.8.? Heart rate 90-100.? He received 1000 sodium chloride bolus.? Pain and nausea medication.? Is started on Cipro and Flagyl.? Lactic acid, blood cultures are requested.? Surgery is consulted. Hospital course Patient was admitted for management and evaluation of microperforation, diverticulitis. His leukocytosis jumped from 14,000-18,000 however he remained afebrile, no worsening abdominal pain, nausea, vomiting or fever. Patient was able to tolerate clear liquid diet throughout his hospitalization, his symptoms improved despite worsening of leukocytosis. He was started on IV fluids, repeat KUB did show ileus secondary to inflammatory changes related to diverticulitis. However patient did not show any signs of obstruction. He was able to tolerate clear liquid diet, in total he has had 3-4 bowel movements 24 hours before his discharge from the hospital. He was kept on IV ciprofloxacin and Flagyl. He will follow up with Dr. Garrett for colonoscopy outpatient. At the time of discharge he will get potassium supplement, ciprofloxacin and Flagyl 10-day regimen. updated Physical Exam Narrative: Patient is laying comfortably in his bed Abdomen is sore in hypogastric region otherwise no active peritonitis guarding or rigidity Bowel sound present No signs of edema Nonfocal neuro exam Saturating well on room air S1, S2 Patient is pleasant cooperative during my evaluation Discharge Data Studies Completed and Pending Completed Studies During Hospitalization Category Date Time Status CT abdomen pelvis w con* [id number] Urgent Cat Scan 01/25/22 03:33 Completed XR KUB portable [id number] Routine Exams 01/26/22 09:48 Completed Pending at discharge Category Date Time Status Blood Culture Stat Lab 01/25/22 07:24 Results OVA and Parasites, Conc and PE Routine Lab 01/27/22 04:25 Received Radiology Impressions Abdomen/Pelvis CT 01/25/22 03:33 IMPRESSION: Moderate diverticulitis in the proximal sigmoid colon with focally contained air suggesting rupture of a diverticulum with no gross pneumoperitoneum or abscess. KUB X-Ray 01/26/22 09:48 IMPRESSION: 1. Findings suggest small bowel obstruction. Laboratory Results WBC 13.1 10^3/uL (4.0-10.0) H 01/28/22 04:16 RBC 4.62 10^6/uL (4.1-5.3) 01/28/22 04:16 Hgb 13.5 g/dL (11.7-16.6) 01/28/22 04:16 Hct 40.9 % (42.0-52.0) L 01/28/22 04:16 MCV 88.5 fl (80-94) 01/28/22 04:16 MCH 29.2 pg (28.0-34.0) 01/28/22 04:16 MCHC 33.0 g/dL (30.0-36.0) 01/28/22 04:16 RDW 13.1 % (12.1-15.1) 01/28/22 04:16 Plt Count 222 10^3/cmm (130-400) 01/28/22 04:16 MPV 9.4 fL (7.4-10.4) 01/28/22 04:16 Neut % (Auto) 81.7 % 01/28/22 04:16 Lymph % (Auto) 8.9 % 01/28/22 04:16 [place] % (Auto) 6.4 % 01/28/22 04:16 Eos % (Auto) 2.1 % 01/28/22 04:16 Baso % (Auto) 0.2 % 01/28/22 04:16 Neut # (Auto) 10.68 10^3/uL (1.8-7.7) H 01/28/22 04:16 Lymph # (Auto) 1.2 10^3/uL (0.8-4.8) 01/28/22 04:16 [place] # (Auto) 0.8 10^3/uL (0.2-0.9) 01/28/22 04:16 Eos # (Auto) 0.3 10^3/uL (0.0-0.8) 01/28/22 04:16 Baso # (Auto) 0.0 10^3/uL (0.0-0.1) 01/28/22 04:16 Nucleated RBC % (auto) 0 % 01/28/22 04:16 Nucleated RBCs # 0.0 /100WBC 01/28/22 04:16 Sodium 135 mmol/L (136-145) L 01/28/22 04:16 Potassium 3.1 mmol/L (3.5-5.1) L 01/28/22 04:16 Chloride 101 mmol/L (98-107) 01/28/22 04:16 Carbon Dioxide 24 mmol/L (22-29) 01/28/22 04:16 Anion Gap 13.1 (5-19) 01/28/22 04:16 BUN 12 mg/dL (6-20) 01/28/22 04:16 Creatinine 0.8 mg/dL (0.7-1.2) 01/28/22 04:16 GFR Calculation 101.9 mL/min (90-130) 01/28/22 04:16 Glucose 103 mg/dL (65-115) 01/28/22 04:16 Calculated Osmolality 280 mOsm/kg (285-295) L 01/28/22 04:16 Lactate 1.1 mmol/L (0.5-2.2) 01/27/22 05:35 Calcium 8.8 mg/dL (8.5-10.5) 01/28/22 04:16 Total Bilirubin 0.3 mg/dL (0.15-1.2) 01/25/22 03:46 AST 25 U/L (0-40) 01/25/22 03:46 ALT 46 U/L (0-41) H 01/25/22 03:46 Alkaline Phosphatase 42 IU/L (40-130) 01/25/22 03:46 C-Reactive Protein 239.2 mg/L (0.0-4.9) H 01/26/22 04:39 Total Protein 7.6 g/dL (6.6-8.7) 01/25/22 03:46 Albumin 4.6 g/dL (3.5-5.2) 01/25/22 03:46 Globulin 3.0 g/dL (1.3-4.6) 01/25/22 03:46 Lipase 44 U/L (13-60) 01/25/22 03:46 Procalcitonin 0.57 ng/mL (0-0.5) H 01/26/22 04:39 Urine Color Yellow (Yellow) 01/25/22 04:40 Urine Appearance Clear (CLEAR) 01/25/22 04:40 Urine pH 5 (5-7) 01/25/22 04:40 Ur Specific [place] 1.015 (1.005-1.030) 01/25/22 04:40 Urine Protein Neg (Negative) 01/25/22 04:40 Urine Glucose (UA) 2+ (Normal) H 01/25/22 04:40 Urine Ketones Negative (Negative) 01/25/22 04:40 Urine Blood Neg (Negative) 01/25/22 04:40 Urine Nitrate Negative (Negative) 01/25/22 04:40 Urine Bilirubin Neg (Negative) 01/25/22 04:40 Urine Urobilinogen Norm mg/dL (Negative) 01/25/22 04:40 Ur Leukocyte Esterase Negative (Negative) 01/25/22 04:40 Vitals Last Vital Signs Temp 98.3 F 01/28/22 07:40 Pulse 82 01/28/22 07:40 Resp 17 01/28/22 07:40 BP 123/73 01/28/22 07:40 Pulse Ox 95 01/28/22 07:40 Discharge Plan Discharge Patient Disposition: Home Condition: Stable Prescriptions: New ciprofloxacin HCl 500 mg tablet 500 mg PO BID Qty: 14 0RF metronidazole 500 mg tablet 500 mg PO Q8H 7 Days Qty: 21 0RF tramadol 50 mg tablet 25 mg PO Q6H PRN (Reason: pain) Qty: 6 0RF Senna-S 8.6-50 mg tablet 1 tab-cap PO DAILY Qty: 10 0RF potassium chloride 10 mEq capsule, extended release 10 meq PO DAILY Qty: 4 0RF Discharge Orders: Discharge Order (Routine); Ordered 01/28/22 Ordered By: Kvng Schwarz Referrals: Maurizio Garrett MD [Physician] - 2 weeks (Please call [facility] and make an appointment to see Dr. Garrett within the next 2 weeks for colonos copy ) Marcelino Lopez DO [Staff Physician] - 01/31/22 12:30 pm (Hospital f/up) Discharge Diet: Regular Discharge Activity: Increase activity as tolerated Patient Instructions: Diverticulitis, Opioid Safety Discharge Attestations Time Spent in Discharge Care*: less than 30 min Quality Metrics Clinical Quality Measures [ No reported AMI, CVA or VTE this stay] Coding Level of Care Code Acute Chg FW DC note Diagnoses Sigmoid diverticulitis K57.32
== END 2022-01-28 12:00 | disposition home or self-care (01) | DRG 392 ==
LOC: ER 05:03 → MEDSURG 05:31
PROVIDERS: Admitting Provider Internal Medicine; Emergency Provider Emergency Medicine; Visit Provider Internal Medicine
DX: K57.20 Diverticulitis of large intestine with perforation and abscess without bleeding (principal); K56.7 Ileus, unspecified
CPT/HCPCS: 36415; 74018; 74177; 80048; 80053; 81003; 83605; 83690; 84145; 85025; 86140; 87040; 87177; 87209; 87493; 87506; 96365; 96367; 96372; 96375; 99285; J0744; J1170; J1644; J2270; J2405; J7030; Q9967; S0030

== ENCOUNTER 2022-03-15 08:10 | Day surgery (SDC) | payer OTHER, SELFPAY ==
[2022-03-13 10:46] VITALS: BMI 35.2
[2022-03-15 08:44] VITALS: BP 121/89; PULSE 98; RESP 18; TEMP 36.3; O2SAT 96
[2022-03-15] MEDS: sodium chloride 0.9% 1,000 ML 30 ML IV (08:57)
--- NOTE | 2022-03-15 09:03 | ANES.PREANE2 ---
Pre-Anesthetic Assessment Height/Weight: Height 1.83 m Weight 117.934 kg Temp Pulse Resp BP Pulse Ox 97.4 F L 98 18 121/89 96 03/15/22 08:44 03/15/22 08:44 03/15/22 08:44 03/15/22 08:44 03/15/22 08:44 Preop Diagnosis: diagnostic Operation Date: 03/15/22 09:30 Proposed Procedures p Colonoscopy 20826/k57.92(Not Applicable) - Maurizio Garrett MD Familial anesthetic complications: None Was Beta Yanelis taken within 24 hours: N/A Was Clonidine taken within 24 hours: N/A Last intake: Intake Last Liquid Date 03/14/22 Last Liquid Time 23:00 Last Solid Date 03/13/22 Social No alcohol and No tobacco Exam alert, oriented x 3, clear to auscultation bilaterally and regular rate & rhythm Airway Mallampati: Class IV Dentition: full Pulmonary None reported CV/HEM None reported None reported Hepatic None reported GI hx diverticulitis Metabolic None reported Musc/skel None reported Neuropsych None reported Anesthetic Plan ASA status: 2 Anesthesia: MAC Medications/Allergies Home Medications Medication Instructions Recorded Confirmed Last Taken Type No Known Home Medications 03/13/22 03/15/22 Unknown History Allergies Allergy/AdvReac Type Severity Reaction Status Date / Time No Known Allergies Allergy Verified 03/15/22 08:42 Current Medications Generic Name Dose Route Start Last Admin Trade Name Freq PRN Reason Stop Dose Admin Sodium Chloride 1,000 mls @ 30 mls/hr 03/15/22 08:30 03/15/22 08:57 Sodium Chloride 0.9% IV 03/16/22 08:29 30 mls/hr .Q24H ARIK Administration PFSH Anesthesia Medical History (Updated 02/13/22 @ 08:49 by Maurizio Garrett MD) Sigmoid diverticulitis Surgical History H/O hernia repair Infancy Family History Other No significant family history Social History Smoking and tobacco status: never smoked Lives independently: Yes Marital status: Data Anesthesia Cardiac Studies: No Data to Display
--- NOTE | 2022-03-15 09:54 | P.HP_ITS ---
Same Day Surgery H&P Indication for Procedure/HPI DATE OF PROCEDURE: March 15, 2022 CHIEF COMPLAINT/INDICATIONFOR SURGICAL PROCEDURE: Diverticulitis PREOP DIAGNOSIS: diagnostic PLANNED PROCEDURE: Operation Date: 03/15/22 09:30 Proposed Procedures p Colonoscopy 30371/k57.92(Not Applicable) - Maurizio Garrett MD Medications/Allergies* Home Medications Medication Instructions Recorded Confirmed Type No Known Home Medications 03/13/22 03/15/22 History Allergies/Adverse Reactions Allergy/AdvReac Type Severity Reaction Status Date / Time No Known Allergies Allergy Verified 03/15/22 08:42 Current Medications: Generic Name Dose Route Start Last Admin Trade Name Freq PRN Reason Stop Dose Admin Sodium Chloride 1,000 mls @ 30 mls/hr 03/15/22 08:30 03/15/22 08:57 Sodium Chloride 0.9% IV 03/16/22 08:29 30 mls/hr .Q24H ARIK Administration Pertinent History/Comorbid Conditions* Medical History (Updated 02/13/22 @ 08:49 by Maurizio Garrett MD) Sigmoid diverticulitis Surgical History (Updated 01/25/22 @ 06:08 by James Hanna MD) H/O hernia repair Infancy Family History (Updated 01/25/22 @ 06:08 by James Hanna MD) No significant family history Social History Smoking and tobacco status: never smoked Lives independently: Yes Marital status: Pertinent Exam Findings alert, oriented x 3 and regular rate & rhythm Recommendations Surgery/Procedure today Coding Level of Care Code 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
[2022-03-15 10:10] VITALS: BP 120/80; PULSE 84; RESP 20; TEMP 36.3; O2SAT 96
--- NOTE | 2022-03-15 10:14 | ANE.PACU2 ---
Inpatient post-anesthesia follow up: Airway intact: Yes Vital signs: Temperature 97.4 F Pulse Rate 98 Respiratory Rate 18 Blood Pressure 121/89 Pulse Oximetry 96 Oxygen Delivery Me thod Room Air Oxygen Flow Rate Fraction of Inspir ed Oxygen Hydration adequate: Yes Nausea and vomiting: No Pain level: 1 Mental status: Baseline
[2022-03-15 10:19] VITALS: BP 120/80; PULSE 75; RESP 18; O2SAT 95
[2022-03-15 10:30] VITALS: BP 128/82; PULSE 83; RESP 18; O2SAT 96
== END 2022-03-15 10:38 | disposition home or self-care (01) ==
PROVIDERS: PCP Family Medicine; Visit Provider Surgery
PROC: 0DJD8ZZ Inspection of Lower Intestinal Tract, Via Natural or Artificial Opening Endoscopic (ICD-10-PCS; CPT 45378; principal; 2022-03-15 09:30)
DX: K57.92 Diverticulitis of intestine, part unspecified, without perforation or abscess without bleeding (principal); K64.8 Other hemorrhoids
CPT/HCPCS: 45378; J2704; J7030